=== PATIENT | male | born 1945 | race Caucasian/White ===

== ENCOUNTER → 2016-10-28 | Outpatient (CLI) | payer MEDICARE, OTHER ==
[~2016-10-28] MED LIST: ACET650T67 PO; GLUC1TAB44 PO; LOSA100T PO; NORC5TAB PO; OSTETAB PO; PRAV10TA PO; TYLE650T9 PO
[2016-10-28 08:52] LABS: AUTOMATED NEUTROPHIL # 3.3 TH/MM3 (1.8-7.7); BASOPHIL % 0.7 % (0.0-2.0); EOSINOPHIL # 0.4 TH/MM3 (0-0.4); EOSINOPHIL % 6.6 % (0.0-4.0); HEMATOCRIT 47.2 % (39.0-51.0); HEMO FLAGS DIFF FINAL; LYMPH % 29.4 % (9.0-44.0); LYMPHOCYTE # 1.8 TH/MM3 (1.0-4.8); MEAN CELL VOLUME 92.9 FL (80.0-100.0); MEAN CORPUSCULAR HEMOGLOBIN 31.8 PG (27.0-34.0); MEAN CORPUSCULAR HGB CONC 34.3 % (32.0-36.0); MONO % 8.9 % (0.0-8.0); NEUT % 54.4 % (16.0-70.0); PLATELET COUNT 182 TH/MM3 (150-450); RED BLOOD COUNT 5.08 MIL/MM3 (4.50-5.90)
[2016-10-28 09:19] LABS: ALKALINE PHOSPHATASE 66 U/L (45-117); ALT (GPT) 36 U/L (12-78); ANION GAP 4 MEQ/L (5-15); AST (GOT) 24 U/L (15-37); BICARBONATE 29.6 MEQ/L (21.0-32.0); BLOOD UREA NITROGEN 13 MG/DL (7-18); CHLORIDE 106 MEQ/L (98-107); GLOMERULAR FILTRATION RATE 91 ML/MIN (>89); GLUCOSE,FASTING 93 MG/DL (74-99); POTASSIUM 4.2 MEQ/L (3.5-5.1); SODIUM (NA) 140 MEQ/L (136-145); TOTAL BILIRUBIN ADULT 0.8 MG/DL (0.2-1.0)
--- NOTE | 2016-10-28 20:11 | EKG ---
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
== END ==
LOC: CPRE 07:53
PROVIDERS: ATTEND Orthopaedic Surgery
DX: Z01.810 Encounter for preprocedural cardiovascular examination (principal); Z01.812 Encounter for preprocedural laboratory examination; M75.42 Impingement syndrome of left shoulder; M75.122 Complete rotator cuff tear or rupture of left shoulder, not specified as traumatic; R00.1 Bradycardia, unspecified; I44.0 Atrioventricular block, first degree; I44.4 Left anterior fascicular block
CPT/HCPCS: 36415; 80053; 85025; 85610; 85730; 93005

== ENCOUNTER → 2016-10-31 | Day surgery (SDC) | payer MEDICARE, OTHER ==
[~2016-10-31] VITALS: Ht 177.8 cm; Wt 97.4 kg
[~2016-10-31] MED LIST changes: +*morphine SULFATE 8 MG/ML PERIprocedure ONLY ONE; +ACETAMINOPHEN 1000 MG/100 ML VIAL IV ONE; +ACETAMINOPHEN/HYDROcodone 325 MG/5 MG TAB PO PRN; +BUPIVACAINE HCL PF 0.5% 30 ML VIAL NERV BLOCK ONE; +CHLORHEXIDINE GLUCONATE 2 % 1 PACK (2 CLOTHS) TOPICAL PRN; +DO NOT ADM ANY ANTICOAGULANT DRUGS PRN; +EPINEPHrine HCL (1:1000) 30 MG/30 ML VIAL ONE; +INSULIN HUMAN REGULAR 1,000 UNITS/10 ML VIAL SQ PRN; +LACTATED RINGER'S 1000 ML INJ 1,000 ML IV ONE; +LACTATED RINGER'S 1000 ML IV PRN; +METOPROLOL TARTRATE 25 MG TAB PO PRN; +MIDAZOLAM HCL 2 MG/2 ML VIAL ONE; +MORPHINE SULFATE 4 MG/ML INJ IV PUSH PRN; +NEOSTIGMINE 3 MG/3 ML SYR IV ONE; +ONDANSETRON HCL 4 MG/2 ML VIAL IV PRN; +ONDANSETRON HCL 4 MG/2 ML VIAL IV PUSH ONE; +POVIDONE IODINE 5% (ANTISEPSIS KIT) 4 APPLICATIONS EACH NARE PRN; +POVIDONE IODINE 7.5% SCRUB 118 ML BOTTLE TOPICAL SCH; +PROPOFOL 200 MG/20 ML AMP IV ONE; +SODIUM CHLOR 0.9% 1000 ML INJ 1,000 ML IV SCH; +SODIUM CHLORID 0.9% 500 ML IV PRN; +SODIUM CHLORIDE 0.9% FLUSH 5 ML FLUSH IVF PRN; +SODIUM CHLORIDE 0.9% FLUSH 5 ML FLUSH IVF SCH; +VANCOMYCIN 1250 MG/NS 250 ML (for 70-84 kg) IV SCH; +ceFAZolin 2 GM PREMIX 50 ML IV SCH; +ePHEDrine/NS 25 MG/5 ML SYR IV ONE; +fentaNYL CITRATE 250 MCG/5 ML AMP ONE
[2016-10-31 06:16] VITALS: BP 125/82; PULSE 59; RESP 16; TEMP 97.6; O2SAT 95
[2016-10-31 13:39] VITALS: BP 137/61; PULSE 20; RESP 18; TEMP 97.7; O2SAT 93
--- NOTE | 2016-10-31 14:47 | MP ---
cc: JIM CHATMAN DATE OF SURGERY: 10/31/2016 PREOPERATIVE DIAGNOSIS 1. Rotator cuff tear, left shoulder. 2. Biceps tendinopathy. 3. Mild osteoarthritis, left shoulder. POSTOPERATIVE DIAGNOSIS 1. Rotator cuff tear, left shoulder. 2. Biceps tendinopathy. 3. Mild osteoarthritis, left shoulder. OPERATIVE PROCEDURE Arthroscopic surgery left shoulder consisting of the followin. Arthroscopic rotator cuff repair of the supraspinatus, left shoulder. 2. Major debridement of the left shoulder joint including biceps tenotomy. 3. Subacromial decompression including a modified Long procedure (co-planing lateral end left clavicle). SURGEON Dr. Chatman ANESTHESIA General. TECHNIQUE After induction of general anesthesia the patient was placed in the left lateral position supported with Biomet hip positioners. The patient was tilted 20 degrees towards the surgeon. There was good padding on his back. The lower extremities were properly positioned and secured. An axillary roll had been placed. The left arm was placed in traction using an Acufex positioner and the Arthrex soft goods with 10 pound weight. The left shoulder girdle was now prepped with alcohol and ChloraPrep and draped in the routine fashion including Ioban drape around the left arm over the traction system. Bony prominences were marked and shoulder joint entered through the posterior soft spot and joint examined. The head of the humerus and glenoid were actually in good condition with no evidence of any full-thickness cartilage loss. The subscapularis was intact but the biceps tendon appeared to have lost its anchor and dislocated anteriorly. There is complete tear of the supraspinatus anterior to posterior but the infraspinatus and teres minor were intact. An accessory anterior portal was established after needling and biceps tenotomy was carried out with the use of basket forceps and then the shaver brought in to debride the joint and the biceps groove. The biceps tendon did not show any vertical tears but there was a substantial anterior superior, anterior labral tear. Surgery was now focused on the subacromial space. After repositioning the scope a mid lateral approach was used about 4 cm below the acromion and a shaver was used for bursectomy followed by using a 4 mm barrel bur to reduce acromioplasty and co-planing of the lateral end of the clavicle. There was extensive bursitis. This was all debrided using the ArthroCare system and the shaver followed by preparation of the bony bed lateral to the articular surface of the humerus. The traction on the rotator cuff indicated that we should be able to get a good repair by placing the anchors above 5 mm lateral to the articular surface. An anterior anchor was placed and a mattress suture was placed through the rotator cuff. The second suture accidentally pulled out. A posterior anchor was placed and two mattress sutures were now placed so that we had adequate mattress sutures through the rotator cuff and these were all sequentially tied. The anterior suture was cut. The two posterior sutures were than lapped over the greater tuberosity in the form of a second row repair with a SwiveLock getting good fixation of the rotator cuff. The area was thoroughly lavaged followed by closure of the portals with 3-0 nylon sutures. Dressings were applied with Xeroform, 4x4s, ABD and Medipore tape. A DonJoy UltraSling was applied. The patient was transferred to the recovery room in satisfactory condition. The patient tolerated the procedure well. TRANSFUSIONS AND COMPLICATIONS None. POSTOPERATIVE CONDITION Satisfactory. PROGNOSIS Guarded. MD EMILE Carter/PHILIP /10:15 AM /2:23 PM
== END | disposition home or self-care (01) ==
LOC: HSDC 05:25 → EDUNIT# 07:30
PROVIDERS: ATTEND Orthopaedic Surgery
DX: M75.102 Unspecified rotator cuff tear or rupture of left shoulder, not specified as traumatic (principal); M19.012 Primary osteoarthritis, left shoulder; M75.52 Bursitis of left shoulder
CPT/HCPCS: 01630; 29823; 29824; 29827; C1713; J0131; J0171; J0690; J2250; J2270; J2405; J2710; J3010; J3370; J7050; J7120